=== PATIENT | male | born 1990 | race Caucasian/White ===

== ENCOUNTER 2019-02-01 11:32 | Emergency (ER) | payer BC, OTHER ==
[2019-02-01] MEDS ORDERED: Ondansetron ODT TAB* 4 MG SL ONE (11:50)
[2019-02-01] MEDS ORDERED: Morphine 4 MG/ML VIAL (1 ml) 4 MG/ML VIAL IM ONE (11:50)
[2019-02-01 15:31] VITALS: BP 161/87
--- NOTE | 2019-02-02 07:31 | ED ---
Upper Extremity Pain - HPI Summary HPI Summary: Patient is a 28-year-old male presenting to the ED with a stretching of his right arm with severe pain to his bicep and elbow. 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 He states pain is 10/10. He is also endorsing pain to the right lateral ankle. Denies any swelling throughout. He arrives in a sling. He denies any numbness or tingling. He denies any shoulder pain, neck pain. Denies any wrist pain. Symptoms are worsened by movement and better with rest. At rest symptoms are 8/10. Patient has not taken any medication prior to arrival. - History of Current Complaint Chief Complaint: EDExtremityUpper Stated Complaint: RT ARM RT ANKLE INJ PER PT Hx Obtained From: Patient Onset/Duration: Started Hours Ago Timing: Constant Severity Initially: Severe Severity Currently: Severe Character: Aching Aggravating Factor(s): Movement, Lifting, Flexion, Extension Alleviating Factor(s): Rest, Ice Associated Signs & Symptoms: Positive: Negative. Negative: Swelling, Redness, Bruising, Weakness, Numbness/Tingling Related History: Dominant Hand Right - Risk Factors Non-Orthopedic Risk Factor: Negative DVT Risk Factors: Negative Septic Arthritis Risk Factor: Negative Compartment Syndrome Risk Factors: Pain - Allergies/Home Medications Allergies/Adverse Reactions: Allergies Allergy/AdvReac Type Severity Reaction Status Date / Time No Known Allergies Allergy Verified 02/01/19 11:53 Home Medications: Home Medications Naproxen TAB* [Naprosyn 250 mg TAB*] 500 mg PO BID PRN 02/01/19 [History Confirmed 02/01/19] PMH/Surg Hx/FS Hx/Imm Hx Previously Healthy: Yes Endocrine/Hematology History: Denies: Hx Diabetes, Hx Thyroid Disease Cardiovascular History: Denies: Hx Hypertension Respiratory History: Denies: Hx Asthma, Hx Chronic Obstructive Pulmonary Disease (COPD) GI History: Denies: Hx Ulcer - Immunization History Date of Influenza Vaccine: 2015 Hx Pertussis Vaccination: No Immunizations Up to Date: Yes Infectious Disease History: No Infectious Disease History: Denies: Hx Clostridium Difficile, Hx Hepatitis, Hx Human Immunodeficiency Virus (HIV), Hx of Known/Suspected MRSA, Hx Shingles, Hx Tuberculosis, Traveled Outside the [place] in Last 30 Days - Family History Known Family History: Positive: None Negative: Diabetes - Social History Occupation: Employed Full-time Lives: With Family Alcohol Use: Occasionally Hx Substance Use: No Substance Use Type: Reports: None Hx Tobacco Use: No Smoking Status (MU): Never Smoked Tobacco Review of Systems Negative: Fever, Chills, Fatigue, Skin Diaphoresis Negative: Palpitations, Chest Pain Negative: Shortness Of Breath, Cough Positive: Myalgia - right elbow and bicep pain. Negative: Arthralgia Negative: Rash, Bruising Neurological: Negative All Other Systems Reviewed And Are Negative: Yes Physical Exam Triage Information Reviewed: Yes Vital Signs On Initial Exam: Initial Vitals Temp Pulse Resp BP Pulse Ox 97.8 F 103 18 154/104 99 02/01/19 11:41 02/01/19 11:41 02/01/19 11:41 02/01/19 11:41 02/01/19 11:41 Vital Signs Reviewed: Yes Appearance: Positive: Well-Appearing, Well-Nourished Skin: Positive: Skin Color Reflects Adequate Perfusion Head/Face: Positive: Normal Head/Face Inspection Eyes: Positive: EOMI, Conjunctiva Clear Neck: Positive: Supple, No Lymphadenopathy Respiratory/Lung Sounds: Positive: Clear to Auscultation, Breath Sounds Present Cardiovascular: Positive: RRR, Pulses are Symmetrical in both Upper and Lower Extremities Musculoskeletal: Positive: Pain @ - right biceps/R elbow/R lateral ankle Neurological: Positive: Speech Normal Psychiatric: Positive: Affect/Mood Appropriate AVPU Assessment: Alert Diagnostics - Vital Signs Vital Signs Temp Pulse Resp BP Pulse Ox 02/01/19 15:31 97.3 F 90 20 161/87 99 02/01/19 11:59 20 02/01/19 11:41 97.8 F 103 18 154/104 99 - Laboratory Lab Statement: Any lab studies that have been ordered have been reviewed, and results considered in the medical decision making process. Course/Dx - Course Course Of Treatment: During this course of treatment, the patient is evaluated for right sided bicep and elbow pain without pain to the shoulder, neck, wrist or hand. Denies any numbness or tingling. Denies any color or temperature changes. He is also endorsing pain to the right lateral ankle. On physical examination, patient has severe pain to the boiler out of the right bicep and pain to the right bicep, however there is no Ernie deformity. X-ray of the humerus and elbow obtained which showed no acute findings. X ray of the R ankle obtained, which shows soft tissue swelling without fx. Soft tissue ultrasound of the right bicep obtained which shows no edema or detached biceps tendon. Patient currently able to flex and extend at the elbow, however with discomfort. Swelling is given and he will follow-up with orthopedics. This time he is diagnosed with muscle strain. Carlos wrap to right ankle and diagnosed with ankle sprain. Patient remains ambulatory. - Diagnoses Differential Diagnosis/HQI/PQRI: Positive: Other - partial bicep tendon tear Provider Diagnoses: Muscle strain Discharge - Sign-Out/Discharge Documenting (check all that apply): Patient Departure Patient Received Moderate/Deep Sedation with Procedure: No - Discharge Plan Condition: Stable Disposition: HOME Patient Education Materials: Muscle Strain (ED) Forms: *Work Release Referrals: Salbador Bernard MD [Primary Care Provider] - Additional Instructions: Keep arm in splint for comfort Moist heat to the area Follow up with orthopedics if symptoms persist - Billing Disposition and Condition Condition: STABLE Disposition: Home
== END 2019-02-01 15:31 | disposition home or self-care (01) ==
LOC: ED 11:32
DX: S46.211A Strain of muscle, fascia and tendon of other parts of biceps, right arm, initial encounter (principal); S93.401A Sprain of unspecified ligament of right ankle, initial encounter; X50.9XXA Other and unspecified overexertion or strenuous movements or postures, initial encounter; Y93.A5 Activity, obstacle course; Y92.9 Unspecified place or not applicable
CPT/HCPCS: 99282; A9270-GY; J2270